=== PATIENT | male | born 2005 | race Caucasian/White ===

== ENCOUNTER 2023-11-13 09:53 | Outpatient (AMB) | payer OTHER, SELFPAY ==
--- NOTE | 2023-11-13 10:26 | A.OFFPC_ITS ---
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 ?? Prior PCP:?Velma Arango Last office visit/CPE:? 1 yr Acute issue(s):? Murmur and was sent to [facility] & Had echo. Seems to have resolved. Pt Uncertain. ?? PMHx:? [place] ? Valve abnormality. SurgHx:?[place] FHx:? Mom: Healthy Dad: unknown. Sister Autism SocHx:? Nonsmoker, EtOH: 2-3 dr a few times a month. MJ 4 x a week. No other drugs PFSH Medical History (Updated 11/13/23 @ 10:59 by Aaron Tomlin) High blood pressure Social History (Updated 11/13/23 @ 10:28 by Timmy Omalley [facility]) Housing: Apartment Patient Tobacco Use Status: Never used Tobacco e-Cigarette/Vaping Use: Never Used Second Hand Smoke Exposure: No Use of substances other than those prescribed or required for medical reasons: Yes Substance Use Type: Marijuana service: No Current occupational status: employed Current occupation: [employer] Current occupational exposures/hazards: No Cognitive needs: No Hearing needs: No Vision needs: Yes Questionnaire PHQ-9 Over the last 2 weeks, how often have you been bothered by any of the following problems? 1. Little interest or pleasure in doing things: not at all 2. Feeling down, depressed, or hopeless: not at all 3. Trouble falling or staying asleep, or sleeping too much: not at all 4. Feeling tired or having little energy: several days 5. Poor appetite or overeating: not at all 6. Feeling bad about yourself - or that you are a failure or have let yourself or your family down: not at all 7. Trouble concentrating on things, such as reading the newspaper or watching television: not at all 8. Moving or speaking so slowly that other people could have noticed. Or the opposite - being so fidgety or restless that you have been moving around a lot more than usual: not at all 9. Thoughts that you would be better off or of hurting yourself in some way: not at all Total score: 1 Depression Screening Interpretation: Negative Depression Screening Done: Yes 45442 - PHQ-9 Billing: Yes Source: Developed by Drs. Sami Porras, Hawa White, Chele Lawson and colleagues, with an educational marely from [employer]. Thrive Questionnaire Date Thrive assessed: 11/13/23 I am a: Patient What is your living situation today?: I have a steady place to live Within the past 12 months, did the food you bought not last and you didn't have the money to get more?: Never true Within the past 12 months, did you worry whether your food would run out before you got money to buy more?: Never true Do you have trouble paying for medicines?: No Do you have trouble getting transportation to medical appointments?: No Do you have trouble paying your heating and electricity bill?: No Do you have trouble taking care of your child, family member or friend?: No Do you have trouble with day-to-day activities such as bathing, preparing meals, shopping, managing finances, etc.?: No Are you currently unemployed and looking for a job?: No Are you interested in more education?: Yes Please select the resources that you would like help with: None Currently or been in a relationship where the following occur: No concerns reported THRIVE Score: 0 AUDIT C Alcohol Use Questionnaire (AUDIT-C) 1. How often do you have a drink containing alcohol?: 2-4 times a month 2. How many drinks containing alcohol do you have on a typical day when you are drinking?: 3 or 4 3. How often do you have six or more drinks on one occasion?: Less than monthly Total Score: 4 MAYELA-7 AMB Questionnaire MAYELA-7 Date MAYELA - 7 assessed: 11/13/23 Feeling nervous, anxious, or on edge: 0 = Not at all Not being able to stop or control worryin = Not at all Worrying too much about different things: 0 = Not at all Trouble relaxin = Not at all Being so restless that it is hard to sit still: 0 = Not at all Becoming easily annoyed or irritable: 0 = Not at all Feeling afraid as if something awful might happen: 0 = Not at all Total MAYELA-7 score (0-4 normal; 5-9 mild; 10-14 moderate; 15-21 severe): 0 Source: Developed by Drs. Sami Porras, Hawa White, Chele Lawson and colleagues, with an educational marely from [employer]. MAYELA-7 Assessment Billing MAYELA-7 Assessment Tool: MAYELA-7 Assessment 46015 Review of Systems Const Denies chills, Denies fatigue, Denies fever(s), Denies headache(s) and Denies weakness ENT Denies dizziness and Denies headache(s) Card Denies chest pain, Denies lightheadedness, Denies dyspnea and Denies other (Palpitations) Resp Denies cough, Denies dyspnea, Denies wheezing and Denies other ( shortness of breath) Musc Denies numbness and Denies tingling Neuro Denies dizziness, Denies headache(s), Denies numbness, Denies tingling, Denies paresthesias and Denies weakness Psych Denies anxiety and Denies depression Endo Denies fatigue Aller/Immun Denies wheezing Physical exam (Primary Care) Vital Signs: Last Vital Signs Temp 97.9 F 11/13/23 10:31 Pulse 76 11/13/23 10:31 Resp 14 11/13/23 10:31 BP 128/70 11/13/23 10:31 Pulse Ox 98 11/13/23 10:31 Oxygen Delivery Method Room Air 11/13/23 10:31 BMI result Body Mass Index 24.4 Tobacco/Smoking Status: Tobacco use Status Tobacco use date assessed 11/13/23 11/13/23 10:37 Patient Tobacco Use Status Never used Tobacco 11/13/23 10:37 e-Cigarette/Vaping Use Never Used 11/13/23 10:37 PHQ-9: PHQ-9 Score PHQ-9: Total score 1 11/13/23 10:40 Depression Screening Interpretation: Negative Thrive Assessment: Date of Thrive Assessment Date Thrive assessed 11/13/23 11/13/23 10:37 Currently or been in a relationship where the following occur: No concerns reported Const General: no acute distress and well developed Nutritional Appearance: well nourished Orientation/consciousness: patient oriented x3 HENMT Head: Yes normocephalic and Yes atraumatic Eyes General: appearance normal, both eyes and all related structures Pupils: Equal, round and reactive pupils present EOM: EOMs intact bilaterally Resp Effort & Inspection: normal respiratory effort Auscultation: clear to auscultation bilaterally Cardio Rate: regular rate Rhythm: regular rhythm Heart sounds: S1 normal heart sound present, S2 normal heart sound present, no gallops, no murmurs and no rubs Neuro General: patient oriented x3 and gait normal Cranial nerves: Yes Equal, round and reactive pupils present Psych Affect: normal affect Coding Level of Care Code New Pt Level 3 (43544) Diagnoses Heart murmur R01.1 Laboratory exam ordered as part of routine general medical examination Z00.00 Additional Codes MAYELA-7 Assessment Billing - MAYELA-7 Assessment Tool: MAYELA-7 Assessment 00537 ([id number]) Assessment & Plan Assessment & Plan (1) Heart murmur: Code(s): R01.1 - Cardiac murmur, unspecified Category: Medical Plan: No?heart?murmur?heard?today. Patient?was?followed?by?a?pediatric?injection wax molder?for?murmur?and?question?of?valv e?abnormality Patient?is?uncertain?of?final?det ermination?of?whether?or?not?he?grew?out?of?this?murmur [facility]. We?can?review?records?together?and?determine?if?further?workup?is?needed. (2) Laboratory exam ordered as part of routine general medical examination: Code(s): Z00.00 - Encounter for general adult medical examination without abnormal fi ndings Category: Medical Plan: Check?labs Orders: Orders Comprehensive Bradley. Panel Fast Today Z00.00 - Encounter for general adult medical examination without abnormal findings Lipid Panel Today Z00.00 - Encounter for general adult medical examination without abnormal findings Microalbumin, Random (w Creat) Today I10 - Essential (primary) hypertension CT NG by PCR Today Z11.3 - Encounter for screening for infections with a predominantly sexual mode of transmission HIV Ab/Ag Today Z11.3 - Encounter for screening for infections with a predominantly sexual mode of transmission Hepatitis B,C Profile Today Z11.3 - Encounter for screening for infections with a predominantly sexual mode of transmission TSH reflex Free T4 Today Z00.00 - Encounter for general adult medical examination without abnormal findings UA and rflx microscopic Today Z00.00 - Encounter for general adult medical examination without abnormal findings Syphilis Screen Today Z11.3 - Encounter for screening for infections with a predominantly sexual mode of transmission
[2023-11-13 10:31] VITALS: BP 128/70; PULSE 76; RESP 14; TEMP 36.6; O2SAT 98; BMI 24.4
== END 2023-11-13 11:34 | disposition home or self-care (01) ==
PROVIDERS: Visit Provider Family Medicine
DX: R01.1 Cardiac murmur, unspecified (principal); Z00.00 Encounter for general adult medical examination without abnormal findings

== ENCOUNTER → 2023-11-13 09:53 | Outpatient (BNVA) | payer OTHER, MEDICAID, SELFPAY | PROVIDERS: Visit Provider Family Medicine | DX: Z00.01 Encounter for general adult medical examination with abnormal findings (principal); R01.1 Cardiac murmur, unspecified | CPT/HCPCS: 96127; 99202 ==

== ENCOUNTER 2024-02-19 09:45 | Outpatient (REF) | payer OTHER, SELFPAY ==
[2024-02-19 12:06] LABS: Appearance Urine Clear; Color Urine Yellow; Glucose Urine UA Negative (Negative); Leukocyte Esterase Urine Negative (Negative); Nitrite Urine Negative (Negative); PH 5.5 (5.0-9.0); Specific Gravity - Urine >= 1.030 (1.005-1.025); Urine Blood Negative (Negative); Urine Ketones Trace mg/dL (Negative); Urine Protein Negative (Neg-Trace)
[2024-02-19 12:14] LABS: Creatinine Urine 251.21 mg/dL; Microalbum/Creatinine Ratio Ur 7.1 ug/mg cr (<30)
[2024-02-19 12:19] LABS: HBS Num1 1.16 mIU/mL (0-7.99); HBc Num1 0.07 S/CO (0.00-0.79); HIV AB/AG Nonreactive (Nonreactive); HIV Num 1 0.05 S/CO (0.00-0.99); Hepatitis B Core Antibody Nonreactive (Nonreactive); Hepatitis B Surface Antigen Negative (Negative); Syphilis Screen Nonreactive (Nonreactive); ~HepC Num1 0.16 S/CO (0.00-0.79); ~Hepatitis B Surface Antibody NONREACTIVE (Nonreactive); ~Hepatitis C Antibody Nonreactive (Nonreactive)
[2024-02-19 12:29] LABS: Alanine Aminotransferase 30 U/L (0-40); Albumin Level 4.9 g/dL (3.5-5.0); Alkaline Phosphatase 82 U/L (39-117); Anion Gap 10 (12-20); Aspartate Amino Transferase 58 U/L (5-37); Bilirubin Total 1.6 mg/dL (0.0-1.0); Blood Urea Nitrogen 13 mg/dL (9-16); Calcium 9.8 mg/dL (8.4-10.2); Carbon Dioxide 27 mmol/L (22-29); Chloride 109 mmol/L (96-108); Cholesterol 188 mg/dL (<200); Estimated Glomerular Filt Rate > 60; Glucose Fasting 104 mg/dL (60-99); HDL Cholesterol 62 mg/dL (>40); LDL Cholesterol Calculated 117 mg/dL (<100); Potassium 4.1 mmol/L (3.3-5.1); Sodium 142 mmol/L (135-145); TSH reflex Free T4 1.17 uIU/mL (0.32-4.0); Total Protein 7.9 g/dL (6.5-8.0); Triglycerides 49 mg/dL (<150)
== END 2024-02-19 09:46 | disposition home or self-care (01) ==
LOC: HO.WFDLDS 09:45
PROVIDERS: Visit Provider Family Medicine
DX: Z00.00 Encounter for general adult medical examination without abnormal findings (principal); I10 Essential (primary) hypertension; Z11.3 Encounter for screening for infections with a predominantly sexual mode of transmission; Z11.59 Encounter for screening for other viral diseases; Z72.89 Other problems related to lifestyle
CPT/HCPCS: 36415; 80053; 80061; 81003; 82043; 82570; 84443; 86704; 86706; 86780; 86803; 87340; 87389

== ENCOUNTER 2024-02-24 15:53 | Outpatient (AMB) | payer OTHER, SELFPAY ==
--- NOTE | 2024-02-24 16:13 | A.OFFPC_ITS ---
Vital Signs 02/24/24 16:15 Height 5 ft 6.34 in Weight 159 lb 8 oz BMI 25.5 BP 140/60 H Blood Pressure Location Lt brachial Position Sitting Respiration 14 Pulse 80 Pulse Source Pulse Oximeter Pulse Oximetry (%) 80 L Oxygen Delivery Method Room Air Intake Visit Reasons: CPE with fu labs and main. Intake Note: CPE Allergies No Known Allergies Allergy (Verified 02/24/24 16:14) Tobacco use date assessed: 02/24/24 Dental Screening Dental Screen Date: 02/24/24 Did you have a dental visit in the last 12 months?: No Did you have a dental problem in the last 6 months where you did not have access to dental care?: No HPI CPE with fu labs and main. HPI Details 19 y/o male presents for a CPE with f/u labs. Labs drawn 02/19/24. Reviewed labs with pt. Elevated fasting glucose of 104. Elevated AST of 58. Triglycerides 49. TC 188. LDL 117. HDL 62. PFSH Medical History High blood pressure Social History Housing: Apartment Patient Tobacco Use Status: Never used Tobacco e-Cigarette/Vaping Use: Never Used Second Hand Smoke Exposure: No Substance Use Type: Marijuana service: No Current occupational status: employed Current occupation: [employer] Current occupational exposures/hazards: No Cognitive needs: No Hearing needs: No Vision needs: Yes Questionnaire PHQ-9 Over the last 2 weeks, how often have you been bothered by any of the following problems? 1. Little interest or pleasure in doing things: not at all 2. Feeling down, depressed, or hopeless: not at all 3. Trouble falling or staying asleep, or sleeping too much: not at all 4. Feeling tired or having little energy: not at all 5. Poor appetite or overeating: not at all 6. Feeling bad about yourself - or that you are a failure or have let yourself or your family down: not at all 7. Trouble concentrating on things, such as reading the newspaper or watching television: not at all 8. Moving or speaking so slowly that other people could have noticed. Or the opposite - being so fidgety or restless that you have been moving around a lot more than usual: not at all 9. Thoughts that you would be better off or of hurting yourself in some w ay: not at all Total score: 0 Source: Developed by Drs. Sami Porras, Hawa White, Chele Lawson and colleagues, with an educational marely from [employer]. Thrive Questionnaire Date Thrive assessed: 02/24/24 I am a: Patient What is your living situation today?: I have a steady place to live Within the past 12 months, did the food you bought not last and you didn't have the money to get more?: Never true Within the past 12 months, did you worry whether your food would run out before you got money to buy more?: Never true Do you have trouble paying for medicines?: No Do you have trouble getting transportation to medical appointments?: No Do you have trouble paying your heating and electricity bill?: No Do you have trouble taking care of your child, family member or friend?: No Do you have trouble with day-to-day activities such as bathing, preparing meals, shopping, managing finances, etc.?: No Are you currently unemployed and looking for a job?: No Are you interested in more education?: No Please select the resources that you would like help with: None Currently or been in a relationship where the following occur: No concerns reported THRIVE Score: 0 AUDIT C Alcohol Use Questionnaire (AUDIT-C) 1. How often do you have a drink containing alcohol?: 2-4 times a month 2. How many drinks containing alcohol do you have on a typical day when you are drinking?: 3 or 4 3. How often do you have six or more drinks on one occasion?: Less than monthly Total Score: 4 MAYELA-7 AMB Questionnaire MAYELA-7 Date MAYELA - 7 assessed: 02/24/24 Feeling nervous, anxious, or on edge: 0 = Not at all Not being able to stop or control worryin = Not at all Worrying too much about different things: 0 = Not at all Trouble relaxin = Not at all Being so restless that it is hard to sit still: 0 = Not at all Becoming easily annoyed or irritable: 0 = Not at all Feeling afraid as if something awful might happen: 0 = Not at all Total MAYELA-7 score (0-4 normal; 5-9 mild; 10-14 moderate; 15-21 severe): 0 Source: Developed by Drs. Sami Porras, Hawa White, Chele Lawson and colleagues, with an educational marely from [employer]. Review of Systems Const Denies chills, Denies fatigue, Denies fever(s), Denies headache(s) and Denies weakness Eyes Denies change in vision ENT Denies dizziness, Denies headache(s), Denies hearing loss, Denies nasal congestion, Denies sinus pain, Denies sinus pressure and Denies sore throat Card Denies chest pain, Denies lightheadedness, Denies dyspnea and Denies other (palpitations) Resp Denies cough, Denies dyspnea and Denies wheezing GI Denies abdominal pain, Denies melena, Denies hematochezia, Denies change in bowel habits, Denies dyspepsia and Denies nausea Denies hematuria and Denies dysuria Musc Denies abnormal gait, Denies myalgias, Denies arthralgias, Denies numbness and Denies tingling Skin/Breast Denies rash, Denies unusual bruising and Denies wounds Neuro Denies abnormal gait, Denies dizziness, Denies headache(s), Denies memory loss, Denies numbness, Denies Sensory deficit (Neuro), Denies tingling and Denies weakness Psych Denies anxiety, Denies depression and Denies memory loss Endo Denies cold intolerance, Denies fatigue, Denies heat intolerance, Denies polydipsia and Denies polyuria Fran/Lymph Denies easy bleeding and Denies easy bruising Aller/Immun Denies wheezing Physical exam (Primary Care) Vital Signs: Last Vital Signs Pulse 80 02/24/24 16:15 Resp 14 02/24/24 16:15 BP 140/60 H 02/24/24 16:15 Pulse Ox 80 L 02/24/24 16:15 Oxygen Delivery Method Room Air 02/24/24 16:15 BMI result Body Mass Index 25.5 Tobacco/Smoking Status: Tobacco use Status Tobacco use date assessed 02/24/24 02/24/24 16:18 Patient Tobacco Use Status Never used Tobacco 02/24/24 16:18 e-Cigarette/Vaping Use Never Used 02/24/24 16:18 PHQ-9: PHQ-9 Score PHQ-9: Total score 0 02/24/24 16:35 Thrive Assessment: Date of Thrive Assessment Date Thrive assessed 02/24/24 02/24/24 16:18 Currently or been in a relationship where the following occur: No concerns re ported Const General: no acute distress, well developed, alert and awake Nutritional Appearance: well nourished Orientation/consciousness: patient oriented x3 HENMT Head: Yes normocephalic and Yes atraumatic Ears: hearing grossly normal bilaterally and TM's normal bilaterally General nose exam: Normal external nose present and Normal nares present Mouth: Normal oral and palatal mucosa present and moist mucous membranes Teeth and gingiva: dentition normal Throat: Yes posterior oropharynx normal Eyes General: appearance normal, both eyes and all related structures Pupils: Equal, round and reactive pupils present and Pupil accommodation reflex normal EOM: EOMs intact bilaterally Neck Neck: Yes normal visual inspection, Yes no lymphadenopathy and Yes trachea midline Thyroid: Thyroid normal Carotids: no bruits Lymphatic: no lymphadenopathy noted Chest Chest palpation & inspection: normal inspection of the chest Resp Effort & Inspection: normal respiratory effort Auscultation: clear to auscultation bilaterally Cardio Rate: regular rate Rhythm: regular rhythm Heart sounds: S1 normal heart sound present, S2 normal heart sound present, no gallops, Murmur heart sound present (2/6 murmur over aortic region) and no rubs Bruits: no abdominal aortic bruits and no carotid bruits GI Palpation (GI): No Abdominal aortic bruit present, Soft to palpation, nontender, No hepatosplenomegaly present and No Rebound tenderness present Auscultation: normal bowel sounds General: Yes no CVA tenderness Back/Spine/Pelvis Back: no CVA tenderness Cervical Spine: cervical ROM normal and No Cervical spine tenderness Thoracic/Lumbar Spine: thoraco-lumbar ROM normal, No pain with thoraco-lumbar ROM, No thoracic spinal tenderness and No lumbar spinal tenderness Skin Lesions: no lesions Rashes: no rashes Trauma: no lacerations or abrasions Wounds: no wounds Nails: normal Neuro General: patient oriented x3 Cranial nerves: Yes Equal, round and reactive pupils present Cognition (Neuro): normal cognition Gait exam (Neuro): Normal gait present Motor exam (neuro): 5/5 motor strength present throughout Sensory Exam: No Sensory deficit (Neuro) Deep tendon reflexes (DTR's): Right patellar reflex intensity grade: 2+ and Left patellar reflex intensity grade: 2+ Extrem General: Yes normal to inspection and No edema Psych Appearance: grossly normal Affect: normal affect Attitude: cooperative Thought process: Normal thought process present Coding Level of Care Code New Pt Prev Care 18-39yr([id number] Diagnoses Adult general medical exam Z00.00 Heart murmur R01.1 Elevated liver enzymes R74.8 Elevated fasting glucose R73.01 Bicuspid aortic valve Q23.81 Elevated LDL cholesterol level E78.00 Assessment & Plan Assessment & Plan (1) Adult general medical exam: Code(s): Z00.00 - Encounter for general adult medical examination without abnormal findings Category: Medical Plan: 39-year-old?male?presents?for?complete?physical?exam Exam?within?normal?limits?except?as?described?below (2) Heart murmur: Code(s): R01.1 - Cardiac murmur, unspecified Category: Medical Plan: From Prior Records: 2014 Patient has known bicuspid aortic valve which was found incidentally on echo. Head Of Operation And Logistics says also has Still's murmur which is unrelated to aortic valve. Recommended no need for SBE prophylaxis or activity restrictions. Will require lifelong follow-up for increased risk of aortic stenosis/regurgitation and aortic root dilatation. He was seen following year by Cardiology with no changes. (3) Elevated liver enzymes: Code(s): R74.8 - Abnormal levels of other serum enzymes Category: Medical Plan: Labs?showed?mildly?elevated?liver?enzymes He?suspects?he?may?have?had?an?alcohol?a?couple?days?prior?to?getting?his?labs?d rawn Also?appeared?somewhat?dehydrated?and?also?gained ?about?5?lb?over?the?last?few?months. Encouraged?him?to?work?on?some?weight?loss,?good?hydration?and?decrease?alcohol? intake?as?well?as?avoid?alcohol?and?Tylenol?prior?to?getting?labs?drawn If?liver?enzymes?are?the?same?higher,?will?check?an?ultrasound (4) Elevated fasting glucose: Code(s): R73.01 - Impaired fasting glucose Category: Medical Plan: Mildly?elevated?fasting?blood?sugar As?above,?patient?has?gained?some?weight Encouraged?a?diet?lower?in?sugars?and?starches?and?weight?loss Will?recheck?with?next?blood?draw. If?still?elevated?will?get?an?A1c?test (5) Bicuspid aortic valve: Comment: From Prior Records: 2013 Patient has known bicuspid aortic valve which was found incidentally on echo. Head Of Operation And Logistics says also has Still's murmur which is unrelated to aortic va lve. Recommended no need for SBE prophylaxis or activity restrictions. Will require lifelong follow-up for increased risk of aortic stenosis/regurgitation and aortic root dilatation. He was seen following year by Cardiology with no changes. Code(s): Q23.81 - Bicuspid aortic valve Category: Medical Plan: Blood?pressure?was?mildly?elevated?today. Encouraged?good?blood?pressure?control.??No?diagnosis?of?hypertension?at?this?ti me. Encouraged?weight?loss (6) Elevated LDL cholesterol level: Code(s): E78.00 - Pure hypercholesterolemia, unspecified Category: Medical Plan: Mildly?elevated?LDL?cholesterol?and?I?encouraged?a?diet?lower?in?saturated?fats? and?cholesterol Encouraged?mild?weight?loss
[2024-02-24 16:15] VITALS: BP 140/60; PULSE 80; RESP 14; O2SAT 80; BMI 25.5
== END 2024-02-24 16:51 | disposition home or self-care (01) ==
PROVIDERS: PCP Family Medicine; Visit Provider Family Medicine
DX: Z00.00 Encounter for general adult medical examination without abnormal findings (principal); R01.1 Cardiac murmur, unspecified; R74.8 Abnormal levels of other serum enzymes; R73.01 Impaired fasting glucose; Q23.81 Bicuspid aortic valve; E78.00 Pure hypercholesterolemia, unspecified

== ENCOUNTER → 2024-02-24 15:53 | Outpatient (BNVA) | payer OTHER, MEDICAID, SELFPAY | PROVIDERS: Visit Provider Family Medicine | DX: Z00.00 Encounter for general adult medical examination without abnormal findings (principal); R01.1 Cardiac murmur, unspecified; R74.8 Abnormal levels of other serum enzymes; R73.01 Impaired fasting glucose; Q23.81 Bicuspid aortic valve; E78.00 Pure hypercholesterolemia, unspecified | CPT/HCPCS: 99395 ==

== ENCOUNTER 2024-07-08 10:02 | Outpatient (REF) | payer OTHER, SELFPAY ==
--- OUTSIDE RECORDS SUMMARY | 2024-07-08 10:36 | XMS_ITS | Encounter Summary ---
Author Organization [facility] Address [address] [place] [address] Phone Care Team Providers Care Hazardous Materials Waste Technician Name Role Phone Sami Khalil MD Primary Care Provider [phone] Encounter Details Date Type Department Care Team (Late st Contact Info) Description 06/28/2017 Conversion Encounter [facility] [address] [place] [address] Barry Wan MD Social History Tobacco Use Types Packs/Day Years Used Date Smoking Tobacco: Never Assessed Sex and Gender Information Value Date Recorded Sex Assigned at Not on file Legal Sex Male 6:19 PM EDT Gender Identity Not on file Sexual Orientation Not on file documented as of this encounter Plan of Treatment Not on file documented as of this encounter Visit Diagnoses Not on filedocumented in this encounter Care Teams Hazardous Materials Waste Technician Relationship Specialty Start Date End Date Sami Khalil MD [address] [place] [address] PCP - General Pediatrics 04/23/22 11/17/23 documented as of this encounter
[2024-07-08 12:11] LABS: Estimated Average Glucose 97 mg/dL
[2024-07-08 13:21] LABS: Alanine Aminotransferase 33 U/L (0-40); Albumin Level 4.6 g/dL (3.5-5.0); Alkaline Phosphatase 80 U/L (39-117); Anion Gap 12 (12-20); Aspartate Amino Transferase 43 U/L (5-37); Blood Urea Nitrogen 17 mg/dL (9-16); Calcium 9.1 mg/dL (8.4-10.2); Carbon Dioxide 25 mmol/L (22-29); Chloride 106 mmol/L (96-108); Cholesterol 167 mg/dL (<200); Estimated Glomerular Filt Rate > 60; Glucose Fasting 75 mg/dL (60-99); HDL Cholesterol 48 mg/dL (>40); LDL Cholesterol Calculated 108 mg/dL (<100); Potassium 4.1 mmol/L (3.3-5.1); Sodium 139 mmol/L (135-145); Total Protein 7.2 g/dL (6.5-8.0); Triglycerides 58 mg/dL (<150)
== END 2024-07-08 10:03 | disposition home or self-care (01) ==
LOC: HO.WFDLDS 10:02
PROVIDERS: Visit Provider Family Medicine
DX: Z00.00 Encounter for general adult medical examination without abnormal findings (principal); R73.01 Impaired fasting glucose
CPT/HCPCS: 36415; 80053; 80061; 83036

== ENCOUNTER 2024-08-08 11:08 | Outpatient (AMB) | payer OTHER, SELFPAY ==
--- NOTE | 2024-08-08 11:26 | MHC.PC.OV ---
Vital Signs 08/08/24 11:30 Height 5 ft 6.34 in Weight 166 lb 4 oz BMI 26.6 BP 130/60 Blood Pressure Location Rt brachial Position Sitting Respiration 14 Pulse 65 Pulse Source Pulse Oximeter Temp 98 F Temp Source Oral Pulse Oximetry (%) 98 Oxygen Delivery Method Room Air Intake Visit Reasons: FU LABS Intake Note: patient is scheduled for lab review Software Applications Architect Required: No Allergies No Known Allergies Allergy (Verified 08/08/24 11:30) Tobacco use date assessed: 02/24/24 Dental Screening Dental Screen Date: 02/24/24 HPI FU LABS HPI Details 19 y/o male presents to f/u labs. Labs drawn 07/08/24. Reviewed labs with pt. Elevated AST of 43. Triglycerides 58. TC 167. LDL 108. HDL 48. Blood pressure today 130/60, 65p. PFSH Medical History High blood pressure Social History Housing: Apartment Patient Tobacco Use Status: Never used Tobacco e-Cigarette/Vaping Use: Never Used Second Hand Smoke Exposure: No Substance Use Type: Marijuana service: No Current occupational status: employed Current occupation: [employer] Current occupational exposures/hazards: No Cognitive needs: No Hearing needs: No Vision needs: Yes Questionnaire Thrive Questionnaire Date Thrive assessed: 02/24/24 I am a: Patient What is your living situation today?: I have a steady place to live Within the past 12 months, did the food you bought not last and you didn't have the money to get more?: Never true Within the past 12 months, did you worry whether your food would run out before you got money to buy more?: Never true Do you have trouble paying for medicines?: No Do you have trouble getting transportation to medical appointments?: No Do you have trouble paying your heating and electricity bill?: No Do you have trouble taking care of your child, family member or friend?: No Do you have trouble with day-to-day activities such as bathing, preparing meals, shopping, managing finances, etc.?: No Are you currently unemployed and looking for a job?: No Are you interested in more education?: No Please select the resources that you would like help with: None Currently or been in a relationship where the following occur: No concerns reported THRIVE Score: 0 MAYELA-7 AMB Questionnaire MAYELA-7 Date MAYELA - 7 assessed: 02/24/24 Source: Developed by Drs. Sami Porras, Hawa White, Chele Lawson and colleagues, with an educational marely from [employer]. Review of Systems Const Denies chills, Denies fatigue, Denies fever(s), Denies headache(s) and Denies weakness ENT Denies dizziness and Denies headache(s) Card Denies dyspnea Resp Denies cough, Denies dyspnea, Denies wheezing and Denies other (shortness of breath) Musc Denies numbness and Denies tingling Neuro Denies dizziness, Denies headache(s), Denies numbness, Denies tingling and Denies weakness Psych Denies anxiety and Denies depression Endo Denies fatigue Aller/Immun Denies wheezing Physical exam (Primary Care) Vital Signs: Last Vital Signs Temp 98 F 08/08/24 11:30 Pulse 65 08/08/24 11:30 Resp 14 08/08/24 11:30 BP 130/60 08/08/24 11:30 Pulse Ox 98 08/08/24 11:30 Oxygen Delivery Method Room Air 08/08/24 11:30 BMI result Body Mass Index 26.6 Tobacco/Smoking Status: Tobacco use Status Tobacco use date assessed 02/24/24 08/08/24 11:27 Patient Tobacco Use Status Never used Tobacco 08/08/24 11:27 e-Cigarette/Vaping Use Never Used 08/08/24 11:27 Thrive Assessment: Date of Thrive Assessment Date Thrive assessed 02/24/24 08/08/24 11:27 Currently or been in a relationship where the following occur: No concerns reported Const General: well developed; No acute distress Nutritional Appearance: well nourished Orientation/consciousness: patient oriented x3 HENMT Head: Yes normocephalic and Yes atraumatic Eyes General: appearance normal, both eyes and all related structures Pupils: Equal, round and reactive pupils present EOM: EOMs intact bilaterally Resp Effort & Inspection: normal respiratory effort Auscultation: clear to auscultation bilaterally Cardio Rate: regular rate Rhythm: regular rhythm Heart sounds: Murmur heart sound present Neuro General: patient oriented x3 and gait normal Cranial nerves: Yes Equal, round and reactive pupils present Psych Affect: normal affect Coding Level of Care Code Est Pt Level 4 (01325) Diagnoses Elevated LDL cholesterol level E78.00 Elevated liver enzymes R74.8 Elevated blood pressure reading R03.0 Bicuspid aortic valve Q23.81 Assessment & Plan Assessment & Plan (1) Elevated LDL cholesterol level: Code(s): E78.00 - Pure hypercholesterolemia, unspecified Category: Medical Plan: Mildly?elevated?LDL?cholesterol?which?is?improving.??Goal?is?less?than?100 Encouraged?diet?lower?in?saturated?fats?and?cholesterol (2) Elevated liver enzymes: Code(s): R74.8 - Abnormal levels of other serum enzymes Category: Medical Plan: Improving?AST Continue?to?work?at?good?hydration?and?weight?control Will?continue?to?monitor (3) Elevated blood pressure reading: Code(s): R03.0 - Elevated blood-pressure reading, without diagnosis of hypertension Category: Medical Plan: Elevated?blood?pressure/pre?hypertension Continue?to?work?at?a?diet?low?in?salt/sodium (4) Bicuspid aortic valve: Comment: From Prior Records: 2014 Patient has known bicuspid aortic valve which was found incidentally on echo. Instrumentation Technologist says also has Still's murmur which is unrelated to aortic valve. Recommended no need for SBE prophylaxis or activity restrictions. Will require lifelong follow-up for increased risk of aortic stenosis/regurgitation and aortic root dilatation. He was seen following year by Cardiology with no changes. Code(s): Q23.81 - Bicuspid aortic valve Category: Medical Plan: We?can?continue?to?monitor Patient?says?he?has?a?workup?tomorrow?through?his?work?physician If?he?is?not?had?an?echo?in?the?past?couple?of?years, we?can?get?when?after?his?physical He?will?have?them?send?me?reports?of?any workup Orders: Orders Comprehensive [place]. Panel Fast 2 Months R03.0 - Elevated blood-pressure reading, without diagnosis of hypertension, Z00.00 - Encounter for general adult medical examination without abnormal findings Lipid Panel Today E78.00 - Pure hypercholesterolemia, unspecified, Z00.00 - Encounter for general adult medical examination without abnormal findings Microalbumin, Random (w Creat) Today I10 - Essential (primary) hypertension, R03.0 - Elevated blood-pressure reading, without diagnosis of hypertension
[2024-08-08 11:30] VITALS: BP 130/60; PULSE 65; RESP 14; TEMP 36.6; O2SAT 98; BMI 26.6
--- OUTSIDE RECORDS SUMMARY | 2024-08-08 12:01 | XMS_ITS | Encounter Summary ---
Author Organization [facility] Address [address] [place] [address] Phone Care Team Providers Care Juvenile Corrections Officer Name Role Phone Sami Khalil MD Primary Care Provider [phone] Encounter Details Date Type Department Care Team (Late st Contact Info) Description 06/28/2017 Conversion Encounter [facility] [address] [place] [address] Barry Wan MD Social History Tobacco Use [...] on filedocumented in this encounter Care Teams Juvenile Corrections Officer Relationship Specialty Start Date End Date Sami Khalil MD [address] [place] [address] PCP - General Pediatrics 04/23/22 11/17/23 documented as of this encounter
== END 2024-08-08 12:14 | disposition home or self-care (01) ==
LOC: HO.HMCFM 11:09
PROVIDERS: PCP Family Medicine; Visit Provider Family Medicine
DX: E78.00 Pure hypercholesterolemia, unspecified (principal); R74.8 Abnormal levels of other serum enzymes; R03.0 Elevated blood-pressure reading, without diagnosis of hypertension; Q23.81 Bicuspid aortic valve

== ENCOUNTER → 2024-08-08 11:08 | Outpatient (BNVA) | payer OTHER, SELFPAY | PROVIDERS: PCP Family Medicine; Visit Provider Family Medicine | DX: R74.8 Abnormal levels of other serum enzymes (principal); E78.00 Pure hypercholesterolemia, unspecified; R03.0 Elevated blood-pressure reading, without diagnosis of hypertension; Q23.81 Bicuspid aortic valve | CPT/HCPCS: 99212 ==

== ENCOUNTER 2024-12-05 16:25 | Outpatient (AMB) | payer BC, SELFPAY ==
--- NOTE | 2024-12-05 16:14 | MHC.PC.OV ---
Intake Visit Reasons: f/u lipids, labs via telemed Intake Note: Follow up lab results. Truck Leasing Manager Required: No Allergies No Known Allergies Allergy (Verified 12/05/24 16:15) Medication List - Last Reconciled 12/05/24 by Myles Dwyer MD No Known Home Meds Tobacco use date assessed: 12/05/24 Dental Screening Dental Screen Date: 02/24/24 HPI f/u lipids, labs via telemed HPI Details Pt presents to f/u chronic conditions via telemed. No recent labs to review. Functionally bicuspid aortic valve 10/2013. Also Still's murmur believed to be unrelated. Will require lifelong follow-up for increased risk of aortic stenosis/regurgitation and aortic root dilatation. Prior notes state no SBE antibiotic prophylaxis or activity restrictions at this time [facility] Medical History High blood pressure Social History Housing: Apartment Patient Tobacco Use Status: Never used Tobacco e-Cigarette/Vaping Use: Never Used Second Hand Smoke Exposure: No Substance Use Type: Marijuana service: No Current occupational status: employed Current occupation: [employer] Current occupational exposures/hazards: No Cognitive needs: No Hearing needs: No Vision needs: Yes Questionnaire Thrive Questionnaire Date Thrive assessed: 02/24/24 AUDIT C Alcohol Use Questionnaire (AUDIT-C) 1. How often do you have a drink containing alcohol?: 2-4 times a month 2. How many drinks containing alcohol do you have on a typical day when you are drinking?: 5 or 6 3. How often do you have six or more drinks on one occasion?: Never Total Score: 4 MAYELA-7 AMB Questionnaire MAYELA-7 Date MAYELA - 7 assessed: 02/24/24 Source: Developed by Drs. Sami Porras, Hawa White, Chele Lawson and colleagues, with an educational marely from [employer]. Physical exam (Primary Care) Tobacco/Smoking Status: Tobacco use Status Tobacco use date assessed 12/05/24 12/05/24 16:16 Patient Tobacco Use Status Never used Tobacco 12/05/24 16:16 e-Cigarette/Vaping Use Never Used 12/05/24 16:16 Thrive Assessment: Date of Thrive Assessment Date Thrive assessed 02/24/24 12/05/24 16:16 Telehealth Telehealth Telehealth Platform: Telephone Location of provider rendering services: practice address Location of patient: address on file Patient Identification confirmed using: Name, : Yes Telehealth method: voice only Patient verbally consented to treatment: No Patient verbally consented to billing insurance company: No Patient informed of any privacy concerns related to visit: No Minutes spent on Phone/Video with Pt.: 5 Coding Level of Care Code Tele Est Pt Level 2 (07416) Diagnoses Bicuspid aortic valve Q23.81 Assessment & Plan Assessment & Plan (1) Bicuspid aortic valve: Comment: From Prior Records: 2013 Patient has known bicuspid aortic valve which was found incidentally on echo. Tape Making Machine Operator says also has Still's murmur which is unrelated to aortic valve. Recommended no need for SBE prophylaxis or activity restrictions. Will require lifelong follow-up for increased risk of aortic stenosis/regurgitation and aortic root dilatation. He was seen following year by Cardiology with no changes. Code(s): Q23.81 - Bicuspid aortic valve Category: Medical Plan: Patient says that he was told by a mortgage lender that he no longer needs to be followed. Checking echocardiogram. If any evidence of a bicuspid valve, would recommend that he be referred to Cardiology to be followed periodically as recommended. Plan Will also have him get labs drawn to follow-up on liver enzymes and lipids. Orders: Orders CA echo transthoracic complete Today Q23.81 - Bicuspid aortic valve
--- OUTSIDE RECORDS SUMMARY | 2024-12-05 19:13 | XMS_ITS | Encounter Summary ---
Author Organization [facility] Address [address] [place] [address] Phone Care Team Providers Care Business Information Consultant Name Role Phone Sami Khalil MD Primary Care Provider [phone] Encounter Details Date Type Department Care Team (Late st Contact Info) Description 03/23/[address] [facility] [place] Family Medicine [address] [place] [address] Family Medicine, Physician [address] [place] [address] Social History Tobacco Use Types Packs/Day Years [...] on filedocumented in this encounter Care Teams Business Information Consultant Relationship Specialty Start Date End Date Sami Khalil MD [address] [place] [address] PCP - General Pediatrics 04/23/22 11/17/23 documented as of this encounter
--- OUTSIDE RECORDS SUMMARY | 2024-12-05 19:13 | XMS_ITS | Encounter Summary ---
Author Organization [facility] Address [address] [place] [address] Phone Care Team Providers Care Mower Operator Name Role Phone Sami Khalil MD Primary Care Provider Encounter Details Date Type Department Care Team (Late st Contact Info) Description 06/28/2017 Conversion Encounter [facility] [address] [place] [address] Barry Wan MD Social History Tobacco Use [...] on filedocumented in this encounter Care Teams Mower Operator Relationship Specialty Start Date End Date Sami Khalil MD [address] [place] [address] PCP - General Pediatrics 04/23/22 11/17/23 documented as of this encounter
--- OUTSIDE RECORDS SUMMARY | 2024-12-05 19:13 | XMS_ITS | Clinical Summary ---
Author Organization [facility] Address [address] [place] [address] Phone Care Team Providers Care Hygiene Coordinator Name Role Phone Unavailable Primary Care Provider Unavailabl e Allergies No known active allergies Medications clindamycin-piper zoyl peroxide 1-5% gel APPLY TO FACE IN THE MORNING AND MAY USE ON BACK AT BEDTIME 10/06/2019 Active minocycline 100 MG capsule TK 1 C PO WITH A FULL GLASS OF WATER QD 07/24/2019 Active Claravis 40 MG capsule TAKE ONE CAPSULE BY MOUTH TWICE DAILY WITH FOOD 05/11/2020 Active Active Problems Problem Noted Date Diagnosed Date Weight loss 05/21/2022 Assessment & Plan (05/21/2022 10:03 AM EDT): 17# down over past year, BMI down to 24. He has been consciously watching what he eats and exercising. Keep up the good work! Discussed would not like to see him lose more weight at this point. Influenza vaccine refused 05/21/2022 Assessment & Plan (05/21/2022 10:06 AM EDT): Recommended flu shot which was declined. He also declined COVID booster today. Allergic rhinitis 05/21/2022 Assessment & Plan (05/21/2022 10:45 AM EDT): Cetirizine helps. Hyperlipidemia 09/02/2020 Overview (09/02/2020): Derm labs 06/29 Assessment & Plan (05/21/2022 10:04 AM EDT): Staying at a healthy BMI and exercising regularly is likely helping in this area as well! Assessment & Plan (12/05/2020 8:12 PM EDT): Mildly elevated on labs performed by derm. Reviewed diet and exercise. Elevated blood-pressure read ing without diagnosis of hypertension 12/03/2019 Assessment & Plan (05/21/2022 9:52 AM EDT): Normal BP today. Reaching a healthy BMI and exercising regularly likely a facor. Assessment & Plan (12/03/2019 9:21 AM EDT): Philip reports elevated BPs in the doctor's office. I have only his echo report from Dr. Zacarias last year. Will request office notes from Dr. Zacarias to see if this has been addressed there. If not, will request some additional BPs and discuss with Dr. Zacarias. Acne vulgaris 11/25/2017 Assessment & Plan (12/05/2020 8:12 PM EDT): Was briefly on Accutane but stopped when LFTs were found to be elevated. Confirmed with Philip and his grandfather that LFTs came back to normal after stopping the Accutane per the labs that were sent to me from derm. Bicuspid aortic valve 11/20/2016 Overview (11/24/2017): 10/23 - functionally bicuspid aortic valve, found incidentally on echo, also has Still's murmur believed to be unrelated; no SBE prophylaxis or activity restrictions at this time, f/u in [address] Ramirez - will require lifelong f/u for increased risk of aortic stenosis/regurgitation and aortic root dilation 10/24 Cardiology f/u, no change, plan to f/u with repeat echo in 2 years Assessment & Plan (05/21/2022 10:06 AM EDT): Discussed what bicuspid aortic valve is and that he will need lifetime follow up with Cardiology. He agrees to call Dr Zacarias and if can't continue with him now he is over 18, to schedule with [facility]. Number given for the [place] location. He denies any symptoms with exercise. Assessment & Plan (12/05/2020 8:11 PM EDT): Followed by Dr. Zacarias. Assessment & Plan (12/03/2019 9:22 AM EDT): No change on echo last year. Continues to be followed q 2 years. Assessment & Plan (11/30/2018 4:25 PM EDT): F/u with cardiology as planned this January. Assessment & Plan (11/25/2017 3:41 PM EDT): Seen by cardiology in 2017, they will be faxing note to us. Per johanna, due back in 2 years. Still's murmur 11/20/2016 Assessment & Plan (12/05/2020 8:12 PM EDT): Followed by Dr. Zacarias. Not appreciated on exam today. Assessment & Plan (12/03/2019 9:22 AM EDT): No change. Assessment & Plan (11/25/2017 3:41 PM EDT): Still's murmur per cardiology. No change on exam today. Resolved Problems Problem Noted Date Diagnosed Date Resolved Date BMI (body mass index), pedia tric, 85% to less than 95% for age 1011/30/2018 05/21/2022 Assessment & Plan (12/03/2019 9:23 AM EDT): Mildly elevated at 88%. Very active with baseball and eating well. Assessment & Plan (11/30/2018 4:28 PM EDT): Very active with sports, consuming a healthy, varied diet. Immunizations Immunization Administration Dates Next Due DTaP 03/02/2008, 5,2003,05/03,2003 H1N1 02/19/2009,12/12/2008 HPV Vaccine 9 Valent 11/20/2016,10/30/2015 Hep A, ped/adol 11/30/2018,11/25/2017 Hep B, ped/adol 2003,2003,2003 Hib (PRP-T) 04/08/2004, 4,2003,03/06 IPV 03/02/2008, 4,2003,03/06 Influenza 11/25/2006,01/05/2006 Influenza, injectable, quadrivalent 11/09,02/13/2012,12/12/2010,09/28,02/19/2009,03/02/2008 Influenza, injectable, quadr ivalent, preservative free 12/02/2019,11/30/2018,11/25/2017,10/29,10/26/2014 Influenza, injectable, triva lent, preservative free 01/08/2005,2003,2003 Influenza, intranasal, quadrivalent 10/25/2013 MMR 01/09/2004 MMRV 01/06/2007 Meningococcal Conj (Menactra) MCV4P 12/02/2019,0 10/26/2014 Pneumococcal Conjugate 04/08/2004,2003,2003,03/06 Tdap 10/26/2014 Varicella 01/09/2004 Family History Medical History Relation Name Comments No Known Problems Maternal Grandfather No Known Problems Maternal Grandmother Bipolar disorder Mother Hepatitis Mother C Substance abuse Mother Ucopwua-Htaik-Fymfq disease Mother's Sister Substance abuse Paternal Grandfather Substance abuse Paternal Grandmother Relation Name Status Comments Father Alive Father's Brother Alive Half-Sister 1 Briahna Alive Half-Sister 2 Aubrielle Alive Maternal Grandfather Alive healthy Maternal Grandmother Alive healthy Mother Alive Mother's Sister Paternal Grandfather drugs Paternal Grandmother drugs Social History Tobacco Use Types Packs/Day Years Used Date Smoking Tobacco: Never Smokeless Tobacco: Never Alcohol Use Standard Drinks/Week Comments Yes 0 (1 standard drink = 0.6 oz pur e alcohol) rare use Hunger/Food Answer Date Recorded In the last 12 months, did y ou or your family ever eat less than you felt you should because there wasn't enough money for food? No 05/21/2022 Stable Housing Answer Date Recorded Are you worried that in the next 2 months you may not have stable housing? No 05/21/2022 Transportation Concerns Answer Date Rec orded In the last 12 months, have you or your family ever had to go without healthcare because you didn't have a way to get there? No 05/21/2022 Hazards in Home Answer Date Recorded Think about the place you li ve. Do you have problems with any of the following? Pests (mice or roaches), mold, no/not working smoke detectors, water leaks, no window guards. No 2022 Financing Utilities Answer Date Recorde d In the last 12 months, has t he electric, gas, oil, or water company threatened to shut off your services in your home? No 05/21/2022 Safety at Home Answer Date Recorded Are you or your family worried about feeling saf e in your home? No 05/21/2022 Outside Support Answer Date Recorded Do you feel that you need mo re support from other people or programs to help you care for yourself or your family? No 05/21/2022 Understanding Health Concerns Answer Da te Recorded Do you need help understandi ng your or your child's healthcare needs (diagnosis, medications, plan, etc.)? No 05/21/2022 Financing Health Concerns Answer Date R ecorded In the last 12 months, was t here a time when your child needed to see a doctor or get medications or supplies but could not because of cost? No 05/21/2022 Missing School or Work Answer Date Eliseo rded Did you or your child miss s chool or work because of a health problem that could have been avoided? No 05/21/2022 Sex and Gender Information Value Date Recorded Sex Assigned at Not on file Legal Sex Male 6:19 PM EDT Gender Identity Not on file Sexual Orientation Not on file Last Filed Vital Signs Vital Sign Reading Time Taken Comments Blood Pressure 118/76 05/21/2022 9:20 AM EDT Pulse - - Temperature 36.5 C (97.7 F) 07/05/2015 12:00 AM EDT Respiratory Rate - - Oxygen Saturation - - Inhaled Oxygen Concentration - - Weight 68.1 kg (150 lb 3.2 oz) 05/21/2022 9:20 A M EDT Height 168 cm (5' 6.14 ) 05/21/2022 9:20 AM EDT Body Mass Index 24.14 05/21/2022 9:20 AM EDT Plan of Treatment Health Maintenance Due Date Last Done Comments Men B Vaccine (1 of 2 - Standard) 2019 Influenza Vaccines (#1) 2024 12/02/19, 11/30/2018, 11/25/2017, Additional history exists COVID-19 Vaccine (4 - 2024-2 6 season) 2024 04/27/2021, 06/21/2020, 05/31/2020 DTaP,Tdap,and Td Vaccines (7 - Td or Tdap) 10/26/2024 10/26/2014, 03/02/2008, 04/08/2004, Additional history exists Hepatitis B Vaccines Completed 2003, 2003, 2003 HIB Vaccines Completed 04/08/2004, 06/10, 2003, Additional history exists Pneumococcal Vaccine Completed 04/08/2004, 2003, 2003, Additional history exists MMR Vaccines Completed 01/06/2007, 01/09/2004 Varicella Vaccines Completed 01/06/2007, 01/09/2004 IPV Vaccines Completed 03/02/2008, 07/2003, 2003, Additional history exists HPV Vaccines Completed 11/20/2016, 10/30/2015 Hepatitis A Vaccines Completed 11/30/2018, 11/26/19 18 Meningococcal Vaccine Completed 12/02/2019, 015 [facility] NON [place] [place] [address] NON PCC [facility]
--- OUTSIDE RECORDS SUMMARY | 2024-12-05 19:13 | XMS_ITS | Encounter Summary ---
Author Organization [facility] Address [address] [place] [address] Phone Care Team Providers Care Location Manager Name Role Phone Sami Khalil MD Primary Care Provider [phone] Encounter Details Date Type Department Care Team (Late st Contact Info) Description 02/19/2009 Documentation [facility] [place] [address] [place] [address] Family Medicine, Physician [address] [place] [address] Social History Tobacco Use Types Packs/Day Years [...] on filedocumented in this encounter Care Teams Location Manager Relationship Specialty Start Date End Date Sami Khalil MD [address] [place] [address] PCP - General Pediatrics 04/23/22 11/17/23 documented as of this encounter
== END 2024-12-05 17:00 | disposition home or self-care (01) ==
LOC: HO.HMCFM 16:25
PROVIDERS: PCP Family Medicine; Visit Provider Family Medicine
DX: Q23.81 Bicuspid aortic valve (principal)